=== PATIENT | male | born 1970 | race Caucasian/White ===

== ENCOUNTER → 2025-09-12 07:47 | Outpatient (REF) | payer BC, SELFPAY | LOC: HWRCS 07:47 | PROVIDERS: ATTENDING PHYSICIAN Internal Medicine Cardiovascular Disease; FAMILY PHYSICIAN Internal Medicine | DX: I25.2 Old myocardial infarction (principal); R07.2 Precordial pain | CPT/HCPCS: 78452; 93017; A9500 ==